=== PATIENT | female | born 1950 | race Caucasian/White ===

== ENCOUNTER → 2022-05-29 10:26 | Outpatient (BNVA) | payer MEDICARE, SELFPAY | PROVIDERS: PCP Nurse Practitioner; Visit Provider Psychiatry & Neurology Neurology | DX: G90.9 Disorder of the autonomic nervous system, unspecified (principal); G47.00 Insomnia, unspecified | CPT/HCPCS: 99202 ==

== ENCOUNTER → 2022-11-13 10:59 | Outpatient (BNVA) | payer MEDICARE, SELFPAY | PROVIDERS: PCP Nurse Practitioner; Visit Provider Psychiatry & Neurology Neurology | DX: G90.9 Disorder of the autonomic nervous system, unspecified (principal); G47.00 Insomnia, unspecified | CPT/HCPCS: 99212 ==

== ENCOUNTER → 2023-02-06 10:19 | Outpatient (BNVA) | payer MEDICARE, SELFPAY | PROVIDERS: PCP Nurse Practitioner; Visit Provider Psychiatry & Neurology Neurology | DX: G47.00 Insomnia, unspecified (principal); G90.9 Disorder of the autonomic nervous system, unspecified; E06.3 Autoimmune thyroiditis; E03.9 Hypothyroidism, unspecified | CPT/HCPCS: Q3014 ==

== ENCOUNTER 2023-08-13 11:12 | Outpatient (AMB) | payer MEDICARE, SELFPAY ==
--- NOTE | 2023-08-13 11:30 | A.OFFVIS_ITS ---
Intake Vital Signs 08/13/23 11:31 Weight 124 lb 4 oz BP 102/68 Blood Pressure Location Lt brachial Position Sitting Respiration 16 Pulse 66 Pulse Source Pulse Oximeter Pulse Oximetry (%) 99 Oxygen Delivery Method Room Air Intake Visit Reasons: FOLLOW UP - Confirmed Intake Note: Pt here for follow up for insomnia. Staff Therapist Required: No Allergies codeine Allergy (Severe, Verified 08/13/23 11:31) vimiting ofloxacin Allergy (Severe, Verified 08/13/23 11:31) swelling of face clindamycin Allergy (Verified 08/13/23 11:31) Rash Penicillins Allergy (Verified 08/13/23 11:31) swelling of the eye Medication List - Last Reconciled 08/13/23 by Cristina Goldberg MD midodrine 2.5 - 5 mg (1 - 2 x 2.5 mg) PO BID miscellaneous medical supply wheel chair NS thyroid (pork) ([place] Thyroid) 30 mg PO DAILY zolpidem (Ambien) 5 mg PO .prn PRN MDD 1tab HPI HPI Comments History of Present Illness Details 72y/o female with pure autonomic failure comes for follow up.she moved to a smaller one level house been easier for her she is on midodrine 5 mg qama nd 2.5 mg after 5 hrs and she is able to manage her symptoms. she was started on droxidopa 100mg bid and increased to 300 mg bid.she stopped droxidopa as she did not feel her BP responded . she says symptoms started ateast 8 years ago with dizziness .In [address] Graff in [place] and had Tilt Table testing , skin biopsy and diagnosed with pure autonomic failure. she is on midodrine 2.5- 5mg am and q noon. she has been doing well since then . she monitors blood pressure if symptomatic .she checks it twice a day. No cardiac issues She has mild constipation she does not sweat. she has trouble voiding , frequent urination. Sleep is difficult - she sleeps 5 hrs and takes occasional naps.she had sleep study in 2013 and was normal. she takes ambien 5 mg qhs as needed PFSH Medical History Pure autonomic failure Hypothyroidism Hyperlipidemia Sammy's thyroiditis Osteoporosis Insomnia Surgical History H/O tooth extraction History of repair of ear bone H/O: hysterectomy H/O hernia repair Family History Mother Diabetes H/O uterine leiomyoma Heart disease Hypertensive disorder Acute arthritis Father Diabetes Hearing loss Myocardial infarction Brother Heart disease Chronic kidney failure Sister Morbid obesity Diabetes Kidney stones Social History Alcohol intake: current Alcohol intake frequency: does not drink Patient Tobacco Use Status: Former Tobacco user Physical Exam Vital Signs: Last Vital Signs Pulse 66 08/13/23 11:31 Resp 16 08/13/23 11:31 BP 102/68 08/13/23 11:31 Pulse Ox 99 08/13/23 11:31 Oxygen Delivery Method Room Air 08/13/23 11:31 Const General: cooperative, healthy appearing, comfortable and no acute distress Nutritional Appearance: average body habitus Orientation/consciousness: patient oriented x3 Limitations: no limitations HEENT Head: Yes normal to inspection, Yes normocephalic and Yes atraumatic Eyes Pupils: Equal, round and reactive pupils present Neck Neck: Yes normal visual inspection, Yes full ROM, Yes no meningeal signs and Yes trachea midline Neuro General: patient oriented x3, gait normal, tone normal, moves all extremities, no meningeal signs and no focal motor deficits Cranial nerves: Yes CN's II-XII intact bilaterally, Yes Facial sensation intact/muscles of mastication intact, Yes Intact sense of smell present, Yes Equal, round and reactive pupils present, Yes Bilaterally intact EOM present, Yes Nystagmus not present, Yes Normal facial strength present and Yes Midline tongue present Cognition (Neuro): normal cognition Gait exam (Neuro): Normal gait present Motor exam (neuro): 5/5 motor strength present throughout and Normal motor muscle tone present throughout Coordination: [id number] test normal Psych Appearance: grossly normal Assessment & Plan Assessment & Plan (1) Pure autonomic failure: Code(s): G90.9 - Disorder of the autonomic nervous system, unspecified (2) Insomnia: Code(s): G47.00 - Insomnia, unspecified Plan Continue midodrine 5mg qam and 2.5 mg 5 hrs later Continue fluids ambien 5mg as needed. Coding Level of Care Code Est Pt Level 4 (63367) Diagnoses Pure autonomic failure G90.9 Insomnia G47.00
[2023-08-13 11:31] VITALS: BP 102/68; PULSE 66; RESP 16; O2SAT 99
== END 2023-08-13 11:43 | disposition home or self-care (01) ==
PROVIDERS: PCP Nurse Practitioner; Visit Provider Psychiatry & Neurology Neurology
DX: G90.9 Disorder of the autonomic nervous system, unspecified (principal); G47.00 Insomnia, unspecified
CPT/HCPCS: 99214

== ENCOUNTER → 2023-08-13 11:12 | Outpatient (BNVA) | payer MEDICARE, SELFPAY | PROVIDERS: PCP Nurse Practitioner; Visit Provider Psychiatry & Neurology Neurology | DX: G90.9 Disorder of the autonomic nervous system, unspecified (principal); G47.00 Insomnia, unspecified | CPT/HCPCS: 99212 ==

== ENCOUNTER 2024-05-06 10:40 | Outpatient (AMB) | payer MEDICARE, SELFPAY ==
--- NOTE | 2024-05-06 10:42 | A.OFFVIS_ITS ---
Vital Signs 05/06/24 10:43 Height 5 ft 2 in Weight 126 lb 2 oz BMI 23.1 BP 102/60 Blood Pressure Location Lt brachial Position Sitting Respiration 16 Pulse 72 Pulse Source Pulse Oximeter Pulse Oximetry (%) 96 Oxygen Delivery Method Room Air Intake Visit Reasons: 6 mnts f/u appt Intake Note: Pt presents for 10 month follow up for forgetfulness. Flight Engineer Inspector Required: No Allergies codeine Allergy (Severe, Verified 05/06/24 10:43) vimiting ofloxacin Allergy (Severe, Verified 05/06/24 10:43) swelling of face clindamycin Allergy (Verified 05/06/24 10:43) Rash Penicillins Allergy (Verified 05/06/24 10:43) swelling of the eye Medication List - Last Reconciled 05/06/24 by Cristina Goldberg MD midodrine 2.5 - 5 mg (1 - 2 x 2.5 mg) PO BID miscellaneous medical supply wheel chair NS thyroid (pork) ([place] Thyroid) 30 mg PO DAILY zolpidem (Ambien) 5 mg PO .prn PRN MDD 1tab HPI Comments Details: 73y/o female with pure autonomic failure comes for follow up.she feels she is worse. 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 she was seeing at [facility] but he is closing his practice . she was started on droxidopa 100mg bid and increased to 300 mg bid.she stopped droxidopa as she did not feel her BP responded . History from initial visit- she says symptoms started ateast 8 years ago with dizziness .In [address] Graff in [place] and had Tilt Table testing , skin biopsy and diagnosed with pure autonomic failure. she is on midodrine 2.5- 5mg am and q noon. she has been doing well since then . she monitors blood pressure if symptomatic .she checks it twice a day. No cardiac issues She has mild constipation she does not sweat. she has trouble voiding , frequent urination. Sleep is difficult - she sleeps 5 hrs and takes occasional naps.she had sleep study in 2013 and was normal. she takes ambien 5 mg qhs as needed PFSH Medical History Pure autonomic failure Hypothyroidism Hyperlipidemia Sammy's thyroiditis Osteoporosis Insomnia Surgical History H/O tooth extraction History of repair of ear bone H/O: hysterectomy H/O hernia repair Family History Mother Diabetes H/O uterine leiomyoma Heart disease Hypertensive disorder Acute arthritis Father Diabetes Hearing loss Myocardial infarction Brother Heart disease Chronic kidney failure Sister Morbid obesity Diabetes Kidney stones Social History Alcohol intake: current Alcohol intake frequency: does not drink Patient Tobacco Use Status: Former Tobacco user Physical Exam Vital Signs: Last Vital Signs Pulse 72 05/06/24 10:43 Resp 16 05/06/24 10:43 BP 102/60 05/06/24 10:43 Pulse Ox 96 05/06/24 10:43 Oxygen Delivery Method Room Air 05/06/24 10:43 BMI result Body Mass Index 23.1 Const General: cooperative, healthy appearing, comfortable and no acute distress Nutritional Appearance: average body habitus Orientation/consciousness: patient oriented x3 Limitations: no limitations HEENT Head: Yes normal to inspection, Yes normocephalic and Yes atraumatic Eyes Pupils: Equal, round and reactive pupils present Neck Neck: Yes normal visual inspection, Yes full ROM, Yes no meningeal signs and Yes trachea midline Neuro General: patient oriented x3, gait normal, tone normal, moves all extremities, no meningeal signs and no focal motor deficits Cranial nerves: Yes CN's II-XII intact bilaterally, Yes Facial sensation intact/muscles of mastication intact, Yes Intact sense of smell present, Yes Equal, round and reactive pupils present, Yes Bilaterally intact EOM present, Yes Nystagmus not present, Yes Normal facial strength present and Yes Midline tongue present Cognition (Neuro): normal cognition Gait exam (Neuro): Normal gait present Motor exam (neuro): 5/5 motor strength present throughout and Normal motor muscle tone present throughout Coordination: [id number] test normal Psych Appearance: grossly normal Assessment & Plan Assessment & Plan (1) Pure autonomic failure: Code(s): G90.9 - Disorder of the autonomic nervous system, unspecified Category: Medical (2) Insomnia: Code(s): G47.00 - Insomnia, unspecified Category: Medical Plan Continue midodrine 5mg qam and 2.5 mg 5 hrs later and consider adding 2.5 mg as needed. Continue fluids. Liquid IV ambien 5mg as needed. 24 hr BP monitor Orders: Orders AMB 24 HR B/P Monitor PLACEMENT Today G90.9 - Disorder of the autonomic nervous system, unspecified Coding Level of Care Code Est Pt Level 4 (28219) Complex EM visit Add On G2211 Diagnoses Pure autonomic failure G90.9 Insomnia G47.00
[2024-05-06 10:43] VITALS: BP 102/60; PULSE 72; RESP 16; O2SAT 96; BMI 23.1
== END 2024-05-06 11:11 | disposition home or self-care (01) ==
PROVIDERS: PCP Nurse Practitioner; Visit Provider Psychiatry & Neurology Neurology
DX: G90.9 Disorder of the autonomic nervous system, unspecified (principal); G47.00 Insomnia, unspecified
CPT/HCPCS: 99214; G2211

== ENCOUNTER → 2024-05-06 10:40 | Outpatient (BNVA) | payer MEDICARE, SELFPAY | PROVIDERS: PCP Nurse Practitioner; Visit Provider Psychiatry & Neurology Neurology | DX: G90.9 Disorder of the autonomic nervous system, unspecified (principal); G47.00 Insomnia, unspecified | CPT/HCPCS: 99212 ==

== ENCOUNTER 2024-05-27 09:31 | Outpatient (AMB) | payer BC, SELFPAY ==
[2024-05-27 09:43] VITALS: BP 108/72; PULSE 66; O2SAT 98; BMI 23.0
--- NOTE | 2024-05-27 09:43 | HO.NEPHOV_ITS ---
Vital Signs 05/27/24 09:43 Height 5 ft 2 in Weight 126 lb BMI 23.0 BP 108/72 Blood Pressure Location Lt brachial Position Sitting Pulse 66 Pulse Source Pulse Oximeter Pulse Oximetry (%) 98 Oxygen Delivery Method Room Air Intake Visit Reasons: Hypertension/ Conf Tablet Machine Operator Required: No Accompanied by: Self / Same As Patient Allergies codeine Allergy (Severe, Verified 05/27/24 09:45) vimiting ofloxacin Allergy (Severe, Verified 05/27/24 09:45) swelling of face clindamycin Allergy (Verified 05/27/24 09:45) Rash Penicillins Allergy (Verified 05/27/24 09:45) swelling of the eye Medication List - Last Reconciled 05/27/24 by LuisE Goldberg MD midodrine 2.5 - 5 mg (1 - 2 x 2.5 mg) PO BID miscellaneous medical supply wheel chair NS thyroid (pork) ([place] Thyroid) 30 mg PO DAILY HPI Comments Details: 73-year-old woman with with pure autonomic failure referred for management of blood pressure. In [address] Graff in [place] and had Tilt Table testing , skin biopsy and diagnosed with pure autonomic failure She is on midodrine twice a day. She has been monitoring her blood pressure to home blood pressures has been rath er erratic. She has supine hypertension with orthostatic hypotension. she was started on droxidopa 100mg bid and increased to 300 mg bid by neurology. she stopped droxidopa as she did not feel her BP responded . she says symptoms started ateast 8 or 9 years ago with dizziness . Upon reviewing the labs she was also found to have hyponatremia. Serum sodium was 133 which later decreased to 129 millimoles per dL. She admits to drinking plenty of water. [facility] Medical History Pure autonomic failure Hypothyroidism Hyperlipidemia Sammy's thyroiditis Osteoporosis Insomnia Surgical History H/O tooth extraction History of repair of ear bone H/O: hysterectomy H/O hernia repair Family History Mother Diabetes H/O uterine leiomyoma Heart disease Hypertensive disorder Acute arthritis Father Diabetes Hearing loss Myocardial infarction Brother Heart disease Chronic kidney failure Sister Morbid obesity Diabetes Kidney stones Social History Alcohol intake: current Alcohol intake frequency: does not drink Patient Tobacco Use Status: Former Tobacco user Review of Systems Const Denies fever(s) and Denies weight loss Card Denies chest pain Resp Denies cough and Denies hemoptysis GI Denies abdominal pain, Denies diarrhea and Denies nausea Musc Denies back pain Neuro Denies focal weakness Physical Exam Vital Signs: Last Vital Signs Pulse 66 05/27/24 09:43 BP 108/72 05/27/24 09:43 Pulse Ox 98 05/27/24 09:43 Oxygen Delivery Method Room Air 05/27/24 09:43 BMI result Body Mass Index 23.0 Blood pressure 160/80 mm Hg supine 110/50 mm Hg sitting 80/50 mm Hg standing She was asymptomatic Const General: comfortable; No acute distress Orientation/consciousness: patient oriented x3 Eyes General: appearance normal, both eyes and all related structures Visual Aparicio: normal visual aparicio by confrontation Neck Neck: Yes supple and Yes no JVD Resp Effort & Inspection: normal respiratory effort and respiratory effort not decrea sed Auscultation: rhonchi Cardio Palpation: no palpable S3 and no palpable S4 Heart sounds: no rubs GI Inspection: Yes normal to inspection Palpation (GI): Soft to palpation Percussion: Yes normal to percussion Auscultation: normal bowel sounds General: Yes no CVA tenderness Back/Spine/Pelvis Back: no CVA tenderness Skin General skin exam: no petechiae and no purpura Neuro General: patient oriented x3 and no focal motor deficits Extrem General: No clubbing and No edema Results Reviewed Results Reviewed: Labs reviewed Renal function normal Mild hyponatremia Nephrology Results: No Data to Display Assessment & Plan Assessment & Plan (1) Hyponatremia: Code(s): E87.1 - Hypo-osmolality and hyponatremia Category: Medical (2) Pure autonomic failure: Code(s): G90.9 - Disorder of the autonomic nervous system, unspecified Category: Medical (3) Orthostatic hypotension dysautonomic syndrome: Code(s): I95.1 - Orthostatic hypotension Category: Medical Plan Cristina has supine hypertension with orthostatic hypotension. ( SHOH) She has undergone tilt-table test in 2018 on was diagnosed with pure autonomic failure. She is currently on midodrine during daytime. I will obtain a 24 hour ambulatory blood pressure monitoring and adjust her midodrine accordingly. In the meantime since she has hyponatremia we will certainly rule out adrenal insufficiency. Cortisol level has been ordered. Encouraged her to limit her free water intake. Orders: Orders Basic Metabolic Panel Today E87.1 - Hypo-osmolality and hyponatremia UA and rflx microscopic Today E87.1 - Hypo-osmolality and hyponatremia Uric Acid Today E87.1 - Hypo-osmolality and hyponatremia Metanephrines, Plasma Today E87.1 - Hypo-osmolality and hyponatremia AMB 24 HR B/P Monitor PLACEMENT Today I10 - Essential (primary) hypertension Cortisol, Free Today E87.1 - Hypo-osmolality and hyponatremia Creatinine Urine Today E87.1 - Hypo-osmolality and hyponatremia Sodium Urine Random Today E87.1 - Hypo-osmolality and hyponatremia Osmolality Urine Today E87.1 - Hypo-osmolality and hyponatremia Osmolality, Serum Today E87.1 - Hypo-osmolality and hyponatremia Coding Level of Care Code New Pt Level 4 (63477) Diagnoses Hyponatremia E87.1 Pure autonomic failure G90.9 Orthostatic hypotension dysautonomic syndrome I95.1
== END 2024-05-27 10:30 | disposition home or self-care (01) ==
PROVIDERS: PCP Nurse Practitioner; Referring Provider Psychiatry & Neurology Neurology; Visit Provider Internal Medicine Hypertension Specialist
DX: E87.1 Hypo-osmolality and hyponatremia (principal); G90.9 Disorder of the autonomic nervous system, unspecified; I95.1 Orthostatic hypotension
CPT/HCPCS: 99204

== ENCOUNTER → 2024-05-27 09:31 | Outpatient (BNVA) | payer BC, SELFPAY | PROVIDERS: PCP Nurse Practitioner; Referring Provider Psychiatry & Neurology Neurology; Visit Provider Internal Medicine Hypertension Specialist ==

== ENCOUNTER → 2024-05-28 10:31 | Outpatient (BNVA) | payer BC, SELFPAY | PROVIDERS: PCP Nurse Practitioner; Visit Provider Internal Medicine Hypertension Specialist ==

== ENCOUNTER 2024-07-08 09:42 | Outpatient (AMB) | payer BC, SELFPAY ==
[2024-07-08 09:44] VITALS: BP 108/70; PULSE 76; O2SAT 98; BMI 23.0
--- NOTE | 2024-07-08 09:44 | HO.NEPHOV ---
Vital Signs 07/08/24 09:44 Height 5 ft 2 in Weight 126 lb BMI 23.0 BP 108/70 Blood Pressure Location Lt brachial Position Sitting Pulse 76 Pulse Source Pulse Oximeter Pulse Oximetry (%) 98 Oxygen Delivery Method Room Air Intake Visit Reasons: 4wk follow up/ Conf Can Washer Required: No Accompanied by: Self / Same As Patient Allergies codeine Allergy (Severe, Verified 07/08/24 09:46) vimiting ofloxacin Allergy (Severe, Verified 07/08/24 09:46) swelling of face clindamycin Allergy (Verified 07/08/24 09:46) Rash Penicillins Allergy (Verified 07/08/24 09:46) swelling of the eye Medication List - Last Reconciled 07/08/24 by Luis E Goldberg MD [Lightweight wheelchair As directed] midodrine 2.5 - 5 mg (1 - 2 x 2.5 mg) PO BID miscellaneous medical supply wheel chair NS thyroid (pork) ([place] Thyroid) 30 mg PO DAILY HPI Comments Details: 73-year-old woman with with pure autonomic failure referred for management of blood pressure. In [address] Graff in [place] and had Tilt Table testing , skin biopsy and diagnosed with pure autonomic failure She is on midodrine twice a day. She has been monitoring her blood pressure to home blood pressures has been rather erratic. She has supine hypertension with orthostatic hypotension. she was started on droxidopa 100mg bid and increased to 300 mg bid by neurology. she stopped droxidopa as she did not feel her BP responded . she says symptoms started ateast 8 or 9 years ago with dizziness . Upon reviewing the labs she was also found to have hyponatremia. Serum sodium was 133 which later decreased to 129 millimoles per dL. She admits to drinking plenty of water. 07/08/2024. She underwent 24 hour ABP M. She has been taking plenty of electrolyte supplements which contain potassium. Her serum potassium was 5.9 last month. Serum cortisol was normal. [facility] Medical History Pure autonomic failure Hypothyroidism Hyperlipidemia Sammy's thyroiditis Osteoporosis Insomnia Surgical History H/O tooth extraction History of repair of ear bone H/O: hysterectomy H/O hernia repair Family History Mother Diabetes H/O uterine leiomyoma Heart disease Hypertensive disorder Acute arthritis Father Diabetes Hearing loss Myocardial infarction Brother Heart disease Chronic kidney failure Sister Morbid obesity Diabetes Kidney stones Social History Alcohol intake: current Alcohol intake frequency: does not drink Patient Tobacco Use Status: Former Tobacco user Physical Exam Vital Signs: Last Vital Signs Pulse 76 07/08/24 09:44 BP 108/70 07/08/24 09:44 Pulse Ox 98 07/08/24 09:44 Oxygen Delivery Method Room Air 07/08/24 09:44 BMI result Body Mass Index 23.0 She was asymptomatic Const General: comfortable; No acute distress Orientation/consciousness: patient oriented x3 Eyes General: appearance normal, both eyes and all related structures Visual Aparicio: normal visual aparicio by confrontation Neck Neck: Yes supple and Yes no JVD Resp Effort & Inspection: normal respiratory effort and respiratory effort not decreased Auscultation: rhonchi Cardio Palpation: no palpable S3 and no palpable S4 Heart sounds: no rubs GI Inspection: Yes normal to inspection Palpation (GI): Soft to palpation Percussion: Yes normal to percussion Auscultation: normal bowel sounds General: Yes no CVA tenderness Back/Spine/Pelvis Back: no CVA tenderness Skin General skin exam: no petechiae and no purpura Neuro General: patient oriented x3 and no focal motor deficits Extrem General: No clubbing and No edema Office Procedures 24 B/P Monitor Interpretation Details: 24 hour ABP M reveal multiple low blood pressure readings. She had nocturnal dipping with significant nocturnal low blood pressures. No white coat hypertension CPT: 58899 24 Hour Blood Pressure Monitor Reading Procedure code (CPT) selection complete Results Reviewed Nephrology Results: No Data to Display Assessment & Plan Assessment & Plan (1) Hyponatremia: Code(s): E87.1 - Hypo-osmolality and hyponatremia Category: Medical (2) Pure autonomic failure: Code(s): G90.9 - Disorder of the autonomic nervous system, unspecified Category: Medical (3) Orthostatic hypotension dysautonomic syndrome: Code(s): I95.1 - Orthostatic hypotension Category: Medical Plan Cristina has supine hypertension with orthostatic hypotension. ( SHOH) She has undergone tilt-table test in 2018 on was diagnosed with pure autonomic failure. Based on 24 hour ABP OK would recommend midodrine 2.5 mg in the morning and 2.5 mg at lunchtime. Monitor blood pressure at home Hyponatremia due to excess free water intake. Cortisol level is normal. Encouraged her to stay on a free water restriction. Add sodium chloride tablet 1 g p.o. b.i.d.. Avoid [id number] electrolyte supplements since these contain potassium. Hyperkalemia was due to excessive potassium intake. I will recheck potassium today Orders: Orders AMB 24 HR B/P Monitor INTERPRETATION Today I10 - Essential (primary) hypertension Basic Metabolic Panel Today G90.9 - Disorder of the autonomic nervous system, unspecified, I95.1 - Orthostatic hypotension Basic Metabolic Panel 1 Month E87.1 - Hypo-osmolality and hyponatremia Medications: New sodium chloride 1,000 mg PO BID 60 tabs 3RF Coding Level of Care Code Est Pt Level 4 (35265) Diagnoses Hyponatremia E87.1 Pure autonomic failure G90.9 Orthostatic hypotension dysautonomic syndrome I95.1 CPT Codes - CPT: 03251 24 Hour Blood Pressure Monitor Reading ([id number])
== END 2024-07-08 09:59 | disposition home or self-care (01) ==
PROVIDERS: PCP Nurse Practitioner; Visit Provider Internal Medicine Hypertension Specialist
DX: E87.1 Hypo-osmolality and hyponatremia (principal); G90.9 Disorder of the autonomic nervous system, unspecified; I95.1 Orthostatic hypotension
CPT/HCPCS: 93790; 99214

== ENCOUNTER → 2024-07-08 09:42 | Outpatient (BNVA) | payer BC, SELFPAY | PROVIDERS: PCP Nurse Practitioner; Visit Provider Internal Medicine Hypertension Specialist ==

== ENCOUNTER 2024-12-10 10:05 | Outpatient (AMB) | payer MEDICARE, SELFPAY ==
[2024-12-10 10:07] VITALS: BP 118/64; PULSE 77; O2SAT 99; BMI 23.2
--- NOTE | 2024-12-10 10:07 | MHC.OFFVIS ---
Vital Signs 12/10/24 10:07 Height 5 ft 2 in Weight 127 lb BMI 23.2 BP 118/64 Blood Pressure Location Lt brachial Position Sitting Pulse 77 Pulse Source Pulse Oximeter Pulse Oximetry (%) 99 Oxygen Delivery Method Room Air Intake Visit Reasons: 6 mnts f/u appt-Conf Intake Note: Patient presents for follow up 24Hr BP monitor done 05/27/24 Allergies codeine Allergy (Severe, Verified 12/10/24 10:09) vimiting ofloxacin Allergy (Severe, Verified 12/10/24 10:09) swelling of face clindamycin Allergy (Verified 12/10/24 10:09) Rash Penicillins Allergy (Verified 12/10/24 10:09) swelling of the eye Medication List - Last Reconciled 12/10/24 by Cristina Goldberg MD [Lightweight wheelchair As directed] midodrine 2.5 - 5 mg (1 - 2 x 2.5 mg) PO BID miscellaneous medical supply wheel chair NS sodium chloride 1,000 mg PO BID thyroid (pork) ([place] Thyroid) 30 mg PO DAILY HPI Comments Details: 74y/o female with pure autonomic failure comes for follow up.she feels she is worse.Her BP drops usually after a meal.No new episodes of REM behavior disorder. she had 2 falls since last visit- both were accidental. she is on midodrine 2.5 mg qam and 5 mg after lunchand she is able to manage her symptoms. Midodrine helps her BP - usually within 60minutes of taking the dose , raises it by 50 atleast so she tries to take the lowest possible dose 1/4 of 5 mg dose. she was seeing at [facility] and [facility] but he is closing his practice . she was started on droxidopa 100mg bid and increased to 300 mg bid.she stopped droxidopa as she did not feel her BP responded . History from initial visit- she says symptoms started ateast 8 years ago with dizziness .In [address] Graff in [place] and had Tilt Table testing , skin biopsy and diagnosed with pure autonomic failure. she is on midodrine 2.5- 5mg am and q noon. she has been doing well since then . she monitors blood pressure if symptomatic .she checks it twice a day. No cardiac issues She has mild constipation she does not sweat. she has trouble voiding , frequent urination. Sleep is difficult - she sleeps 5 hrs and takes occasional naps.she had sleep study in 2013 and was normal. she takes ambien 5 mg qhs as needed she had 1 episode of REM behavior disorder. [facility] Medical History Pure autonomic failure Hypothyroidism Hyperlipidemia Sammy's thyroiditis Osteoporosis Insomnia Surgical History H/O tooth extraction History of repair of ear bone H/O: hysterectomy H/O hernia repair Family History Mother Diabetes H/O uterine leiomyoma Heart disease Hypertensive disorder Acute arthritis Father Diabetes Hearing loss Myocardial infarction Brother Heart disease Chronic kidney failure Sister Morbid obesity Diabetes Kidney stones Social History Alcohol intake: current Alcohol intake frequency: does not drink Patient Tobacco Use Status: Former Tobacco user Physical Exam Vital Signs: Last Vital Signs Pulse 77 12/10/24 10:07 BP 118/64 12/10/24 10:07 Pulse Ox 99 12/10/24 10:07 Oxygen Delivery Method Room Air 12/10/24 10:07 BMI result Body Mass Index 23.2 Const General: cooperative, healthy appearing, comfortable and no acute distress Nutritional Appearance: average body habitus Orientation/consciousness: patient oriented x3 Limitations: no limitations HEENT Head: Yes normal to inspection, Yes normocephalic and Yes atraumatic Eyes Pupils: Equal, round and reactive pupils present Neck Neck: Yes normal visual inspection, Yes full ROM, Yes no meningeal signs and Yes trachea midline Neuro General: patient oriented x3, gait normal, tone normal, moves all extremities, no meningeal signs and no focal motor deficits Cranial nerves: Yes CN's II-XII intact bilaterally, Yes Facial sensation intact/muscles of mastication intact, Yes Intact sense of smell present, Yes Equal, round and reactive pupils present, Yes Bilaterally intact EOM present, Yes Nystagmus not present, Yes Normal facial strength present and Yes Midline tongue present Cognition (Neuro): normal cognition Gait exam (Neuro): Normal gait present Motor exam (neuro): 5/5 motor strength present throughout and Normal motor muscle tone present throughout Coordination: [id number] test normal Psych Appearance: grossly normal Assessment & Plan Assessment & Plan (1) Pure autonomic failure: Code(s): G90.9 - Disorder of the autonomic nervous system, unspecified Category: Medical (2) Insomnia: Code(s): G47.00 - Insomnia, unspecified Category: Medical Plan Continue midodrine 2.5mg qam and 5 mg 5 hrs later and consider adding 2.5 mg as needed. will retrial droxidopa 100mg tid Continue fluids. Liquid IV ambien 5mg as needed.- does not take it Medications: New droxidopa give consistently with OR without food, upon rising, at midday, late PM/at least 3hrs before bedtime 100 mg PO TID 90 caps 0RF Coding Level of Care Code Est Pt Level 4 (66662) Complex EM visit Add On G2211 Diagnoses Pure autonomic failure G90.9 Insomnia G47.00
== END 2024-12-10 10:30 | disposition home or self-care (01) ==
LOC: HO.HSMS 10:06
PROVIDERS: PCP Nurse Practitioner; Visit Provider Psychiatry & Neurology Neurology
DX: G90.9 Disorder of the autonomic nervous system, unspecified (principal); G47.00 Insomnia, unspecified
CPT/HCPCS: 99214; G2211

== ENCOUNTER → 2024-12-10 10:05 | Outpatient (BNVA) | payer MEDICARE, SELFPAY | PROVIDERS: PCP Nurse Practitioner; Visit Provider Psychiatry & Neurology Neurology | DX: G90.9 Disorder of the autonomic nervous system, unspecified (principal); G47.00 Insomnia, unspecified; Z79.899 Other long term (current) drug therapy | CPT/HCPCS: 99212 ==

== ENCOUNTER 2025-06-09 11:40 | Outpatient (AMB) | payer MEDICARE, SELFPAY ==
--- NOTE | 2025-06-09 11:41 | MHC.OFFVIS ---
Vital Signs 06/09/25 11:42 Height 5 ft 2 in Weight 124 lb BMI 22.7 BP 104/66 Blood Pressure Location Rt brachial Position Sitting Pulse 60 Pulse Source Pulse Oximeter Pulse Oximetry (%) 95 Intake Visit Reasons: 6 months Intake Note: Follow up Disorder of the autonomic nervous system, unspecified, Insomnia Medical Tech Required: No Accompanied by: Self / Same As Patient Allergies codeine Allergy (Severe, Verified 06/09/25 11:41) vimiting ofloxacin Allergy (Severe, Verified 06/09/25 11:41) swelling of face clindamycin Allergy (Verified 06/09/25 11:41) Rash Penicillins Allergy (Verified 06/09/25 11:41) swelling of the eye Medication List - Last Reconciled 06/09/25 by Cristina Goldberg MD atorvastatin 10 mg PO DAILY droxidopa 300 mg PO TID [Lightweight wheelchair As directed] midodrine 2.5 - 5 mg (1 - 2 x 2.5 mg) PO BID midodrine 5 mg PO BID PRN miscellaneous medical supply wheel chair NS thyroid (pork) ([place] Thyroid) 30 mg PO DAILY [Walker with seat As directed] HPI Comments Details: 74y/o female with pure autonomic failure comes for follow up.she feels she is worse.Her BP drops usually after a meal.No new episodes of REM behavior disorder.she did not respond well to droxidopa 300mg bid . No falls, she is not able to go for walks anymore she is waking up with lower blood pressure 60s systolic she is on midodrine 2.5 mg qam and 5 mg after lunchand she is able to manage her symptoms. Midodrine helps her BP - usually within 60minutes of taking the dose , raises it by 50 atleast so she tries to take the lowest possible dose 1/4 of 5 mg dose. she was seeing at [facility] and [facility] but he is closing his practice . she was started on droxidopa 100mg bid and increased to 300 mg bid.she stopped droxidopa as she did not feel her BP responded - History from initial visit- she says symptoms started ateast 8 years ago with dizziness .In [address] Grfaf in [place] and had Tilt Table testing , skin biopsy and diagnosed with pure autonomic failure. she is on midodrine 2.5- 5mg am and q noon. she has been doing well since then . she monitors blood pressure if symptomatic .she checks it twice a day. No cardiac issues She has mild constipation she does not sweat. she has trouble voiding , frequent urination. Sleep is difficult - she sleeps 5 hrs and takes occasional naps.she had sleep study in 2013 and was normal. she takes ambien 5 mg qhs as needed she had 1 episode of REM behavior disorder. [facility] Medical History Pure autonomic failure Hypothyroidism Hyperlipidemia Sammy's thyroiditis Osteoporosis Insomnia Surgical History H/O tooth extraction History of repair of ear bone H/O: hysterectomy H/O hernia repair Family History Mother Diabetes H/O uterine leiomyoma Heart disease Hypertensive disorder Acute arthritis Father Diabetes Hearing loss Myocardial infarction Brother Heart disease Chronic kidney failure Sister Morbid obesity Diabetes Kidney stones Social History Alcohol intake: current Alcohol intake frequency: does not drink Patient Tobacco Use Status: Former Tobacco user Physical Exam Vital Signs: Last Vital Signs Pulse 60 06/09/25 11:42 BP 104/66 06/09/25 11:42 Pulse Ox 95 06/09/25 11:42 BMI result Body Mass Index 22.7 Const General: cooperative, healthy appearing, comfortable and no acute distress Nutritional Appearance: average body habitus Orientation/consciousness: patient oriented x3 Limitations: no limitations HEENT Head: Yes normal to inspection, Yes normocephalic and Yes atraumatic Eyes Pupils: Equal, round and reactive pupils present Neck Neck: Yes normal visual inspection, Yes full ROM, Yes no meningeal signs and Yes trachea midline Neuro General: patient oriented x3, gait normal, tone normal, moves all extremities, no meningeal signs and no focal motor deficits Cranial nerves: Yes CN's II-XII intact bilaterally, Yes Facial sensation intact/muscles of mastication intact, Yes Intact sense of smell present, Yes Equal, round and reactive pupils present, Yes Bilaterally intact EOM present, Yes Nystagmus not present, Yes Normal facial strength present and Yes Midline tongue present Cognition (Neuro): normal cognition Gait exam (Neuro): Normal gait present Motor exam (neuro): 5/5 motor strength present throughout and Normal motor muscle tone present throughout Coordination: [id number] test normal Psych Appearance: grossly normal Assessment & Plan Assessment & Plan (1) Pure autonomic failure: Code(s): G90.9 - Disorder of the autonomic nervous system, unspecified Category: Medical (2) Insomnia: Code(s): G47.00 - Insomnia, unspecified Category: Medical Plan Continue midodrine 2.5mg qam and 5 mg 5 hrs later and consider adding 2.5 mg as neede restart droxidopa 300mg tid Continue fluids. Liquid IV ambien 5mg as needed.- does not take it reviewed nephrology notes Orders: Orders Comprehensive Met. Panel Today G90.9 - Disorder of the autonomic nervous system, unspecified Medications: New midodrine do not give last dose of day after 6PM or within 4 hrs of bedtime 5 mg PO BID PRN 60 tabs 6RF for hypotension droxidopa give consistently with OR without food, upon rising, at midday, late PM/at least 3hrs before bedtime 300 mg PO TID 90 caps 6RF Coding Level of Care Code Est Pt Level 4 (00297) Complex EM visit Add On G2211 Diagnoses Pure autonomic failure G90.9 Insomnia G47.00
[2025-06-09 11:42] VITALS: BP 104/66; PULSE 60; O2SAT 95; BMI 22.7
--- OUTSIDE RECORDS SUMMARY | 2025-06-09 14:51 | XMS_ITS | Clinical Summary ---
Author Organization [facility] Address [address] [address] Phone Care Team Providers [facility] [employer] Team Member Name Role Phone Rafaela Sinclair NP Primary Care Provider [phone] Allergies Active Allergy Reactions Criticality Noted Date Comments Clindamycin Hcl 05/21/2022 Codeine 05/21/2022 Ofloxacin 05/21/2022 Penicillins 05/21/2022 Medications midodrine (PROAMATINE) 2.5 MG tablet TAKE 1 TABLET BY MOUTH EVERY DAY NEEDED FOR ORTHOSTATIC HYPOTENSION 2 Active progesterone (ENDOMETRIN) 100 mg vaginal insert 1 cap Active [place] THYROID 30 mg Tab Take 30 mg by mouth. 2 Active zolpidem (AMBIEN) 10 mg tablet TAKE 1 TABLET EVERY DAY BY ORAL ROUTE NEEDED FOR SLEEP AND TRAVEL. 2 Active Active Problems No known active problems Social History Tobacco Use Types Packs/Day Years Used Date Smoking Tobacco: Never Assessed Education Answer Date Recorded Are you interested in more education? Not on rebel e 12/20/2022 Are you concerned about learning? Not on file 12/20/2022 No 12/20/2022 No 12/20/2022 Digital Access Answer Date Recorded No 01/21/2023 No 01/21/2023 Reliable internet access at home? Not on file 01/21/2023 Device with a working camera? Not on file Comments Unknown Sex and Gender Information Value Date Recorded Sex Assigned at Not on file Legal Sex Female 7:23 PM EST Gender Identity Not on file Sexual Orientation Not on file Last Filed Vital Signs Vital Sign Reading Time Taken Comments Blood Pressure 116/70 11/22/2010 1:01 AM EDT Pulse - - Temperature - - Respiratory Rate - - Oxygen Saturation - - Inhaled Oxygen Concentration - - Weight 54.4 kg (120 lb) 05/21/2022 9:08 AM EDT Height 159.4 cm (5' 2.75 ) 05/21/2022 9:08 AM ED T Body Mass Index 21.43 05/21/2022 9:08 AM EDT Plan of Treatment Health Maintenance Due Date Last Done Comments LIPID PANEL 1950 DEPRESSION SCREENING 1962 SMOKING Hx and SMOKELESS TOBACCO SCREENING 1963 HEPATITIS C SCREENING 1968 MAMMOGRAM 1990 COLOGUARD 1995 COLONOSCOPY 1995 COLORECTAL CANCER SCREENING 1995 FIT TEST 1995 FOBT 1995 SIGMOIDOSCOPY 1995 VIRTUAL COLONOSCOPY 1995 PNEUMOCOCCAL VACCINES (50+ years) (1 of 1 - PCV) 2000 ZOSTER VACCINES (1 of 2) 2000 OSTEOPOROSIS SCREENING INITI AL (ONE-TIME) 2015 Adult Td,Tdap Booster 05/10/2019 05/10/2009 INFLUENZA VACCINE (#1) 2025 COVID-19 VACCINE (3 - 2024-2 6 season) 2025 01/12/2021, 12/14/2020 RSV VACCINE (1 - 1-dose 75+ series) 2025 HEPATITIS A VACCINES Aged Out 06/08/2009 No long er eligible based on patient's age to complete this topic HIB VACCINES Aged Out No longer eligi ble based on patient's age to complete this topic MENINGOCOCCAL VACCINES (ACWY) Aged Out No longer eligible based on patient's age to complete this topic MENINGOCOCCAL VACCINES (B) Aged Out N o longer eligible based on patient's age to complete this topic Medical Devices Not on file Insurance [place] MEDIC[place] PPO BLUE REPLACEMENT [facility] MEDICARE PPO BLUE REPLACEMENT [facility] MEDICARE PPO BLUE REPLACEMENT [facility] MEDICARE PPO BLUE [address]PLACEMENT [address] [address] MEDICARE PPO BLUE [address]PLACEMENT [address] [place] [address] MEDIC[address] [address] MEDICARE PPO BLUE REPLACEMENT [facility] MEDICARE PPO BLUE REPLACEMENT Care Teams [employer] Team Member Relationship Specialty Start Date End Date Rafaela Sinclair NP [address] [place] [phone] PCP - General Unknown Provider Specialty 05/21/22 Additional Source Comments The information contained in this document represents components of the legal health record. It is not the complete legal health record.[facility]
== END 2025-06-09 13:29 | disposition home or self-care (01) ==
LOC: HO.HSMS 11:40
PROVIDERS: PCP Nurse Practitioner; Visit Provider Psychiatry & Neurology Neurology
DX: G90.9 Disorder of the autonomic nervous system, unspecified (principal); G47.00 Insomnia, unspecified
CPT/HCPCS: 99214; G2211

== ENCOUNTER 2025-06-09 11:40 | Outpatient (REF) | payer MEDICARE, SELFPAY ==
[2025-06-09 18:26] LABS: Alanine Aminotransferase 16 U/L (0-31); Albumin Level 4.2 g/dL (3.5-5.0); Alkaline Phosphatase 47 U/L (39-117); Anion Gap 11 (12-20); Aspartate Amino Transferase 26 U/L (5-31); Blood Urea Nitrogen 18 mg/dL (9-16); Calcium 8.8 mg/dL (8.4-10.2); Carbon Dioxide 25 mmol/L (22-29); Chloride 102 mmol/L (96-108); Estimated Glomerular Filt Rate 47; Potassium 5.0 mmol/L (3.3-5.1); Sodium 133 mmol/L (135-145); Total Protein 6.6 g/dL (6.5-8.0)
== END 2025-06-09 11:41 | disposition home or self-care (01) ==
LOC: HO.HKASLDS 11:40
PROVIDERS: PCP Nurse Practitioner; Visit Provider Psychiatry & Neurology Neurology
DX: G90.9 Disorder of the autonomic nervous system, unspecified (principal); G47.00 Insomnia, unspecified; R03.1 Nonspecific low blood-pressure reading; Z79.899 Other long term (current) drug therapy
CPT/HCPCS: 36415; 80053; 99212